=== PATIENT | female | born 1990 | race Two or more races ===

== ENCOUNTER 2018-05-13 16:47 | Inpatient (IN) | payer OTHER ==
[~2018-05-13] VITALS: Ht 165.1 cm; Wt 3.2 kg
[2018-05-28] MEDS ORDERED: PRENATAL 19 TA1 EAC1 PO (22:17)
== END 2018-06-01 16:54 | disposition home or self-care (01) | DRG 766 ==
LOC: OB/GYN 05-28 18:40 → LDR 05-28 18:40 → OB/GYN 05-30 08:11 → LDR 06-04 16:46
PROVIDERS: Obstetrics & Gynecology
PROC: 4A1HXCZ Monitoring of Products of Conception, Cardiac Rate, External Approach (ICD-10-PCS; 2018-05-28)
PROC: 3E033VJ Introduction of Other Hormone into Peripheral Vein, Percutaneous Approach (ICD-10-PCS; 2018-05-29)
PROC: 10D00Z1 Extraction of Products of Conception, Low, Open Approach (ICD-10-PCS; principal; 2018-05-29 23:00)
DX: O61.0 Failed medical induction of labor (principal); O62.1 Secondary uterine inertia; Z3A.39 39 weeks gestation of pregnancy; Z37.0 Single live birth

== ENCOUNTER 2018-08-05 12:24 | Outpatient (CLI) | payer OTHER ==
[~2018-08-05 12:24] MED LIST: PRENATAL 19 TA1 EAC1 PO
== END 2018-08-05 12:31 | disposition home or self-care (01) ==
LOC: RAD 12:24
DX: M99.01 Segmental and somatic dysfunction of cervical region (principal); M99.02 Segmental and somatic dysfunction of thoracic region; M99.03 Segmental and somatic dysfunction of lumbar region; M99.04 Segmental and somatic dysfunction of sacral region

== ENCOUNTER 2019-01-07 15:10 | Outpatient (CLI) | payer OTHER | END 2019-01-07 15:32 | disposition home or self-care (01) | LOC: LAB 15:10 | DX: M79.81 Nontraumatic hematoma of soft tissue (principal); D50.8 Other iron deficiency anemias; D51.8 Other vitamin B12 deficiency anemias; I10 Essential (primary) hypertension; D68.8 Other specified coagulation defects; E03.8 Other specified hypothyroidism ==

== ENCOUNTER 2019-01-13 08:50 | Outpatient (CLI) | payer OTHER | END 2019-01-13 09:05 | disposition home or self-care (01) | LOC: NUCLEAR 08:50 | DX: M79.81 Nontraumatic hematoma of soft tissue (principal); I87.2 Venous insufficiency (chronic) (peripheral) ==

== ENCOUNTER 2019-01-20 14:09 | Outpatient (CLI) | payer OTHER | END 2019-01-20 14:20 | disposition home or self-care (01) | LOC: SONOGRAMA 14:09 | DX: M79.81 Nontraumatic hematoma of soft tissue (principal); E06.3 Autoimmune thyroiditis ==

== ENCOUNTER → 2019-03-05 | Outpatient (CLI) | payer OTHER | END | disposition home or self-care (01) | LOC: SONOGRAMA 11:07 | DX: E04.2 Nontoxic multinodular goiter (principal); E06.3 Autoimmune thyroiditis ==

== ENCOUNTER → 2019-07-06 13:19 | Outpatient (CLI) | payer OTHER | END | disposition home or self-care (01) | LOC: LAB 13:19 | DX: D51.3 Other dietary vitamin B12 deficiency anemia (principal); E06.3 Autoimmune thyroiditis; E04.2 Nontoxic multinodular goiter; D50.8 Other iron deficiency anemias; D51.8 Other vitamin B12 deficiency anemias; I10 Essential (primary) hypertension; E03.8 Other specified hypothyroidism ==

== ENCOUNTER → 2020-07-29 | Outpatient (CLI) | payer OTHER | END | disposition home or self-care (01) | LOC: MAMO-SONO 15:15 → SONOGRAMA 15:26 | PROVIDERS: ATTEND Internal Medicine Endocrinology, Diabetes & Metabolism | DX: E04.1 Nontoxic single thyroid nodule (principal) ==